=== PATIENT | male | born 1970 | race Caucasian/White ===

== ENCOUNTER 2017-01-14 06:29 | Day surgery (SDC) | payer BC ==
--- NOTE | 2017-01-04 20:55 | HP ---
PREOPERATIVE HISTORY AND PHYSICAL: DATE OF ADMISSION: 01/14/17 PROVIDERS: Thee Clifford MD and Janell Thomson MD. CHIEF COMPLAINT: Right fifth finger contracture and left foot pain. HISTORY OF PRESENT ILLNESS: Buck is a 46-year-old gentleman who has been followed by both Dr. Thomson and Dr. Clifford. He sees Dr. Thomson for a right small finger Dupuytren's contracture. He had a Xiaflex injection about 3 years ago; however, he only had relief from that for a few months and then had a recurrence of the contracture. It has become increasingly bothersome to him and he is interested in surgical intervention for that problem. He has also had complaints of left foot pain for several years. He does have a history of spina bifida occulta and a left cavovarus deformity. He did undergo an osteotomy in his midfoot several years ago to correct the cavus deformity and he also had a first and second toe IP joint fusion. He now has pain in what appears to be a third hammertoe that occasionally is blistering. He states he is unable to run and do any increased activity without discomfort. He is interested in surgical intervention for correction of that as well. PAST MEDICAL HISTORY: Spina bifida occulta. PAST SURGICAL HISTORY: 1. Left shoulder arthroscopy. 2. Left ulnar nerve decompression. 3. Multiple surgeries of the left foot. 4. Nasal fracture fixation. He reports no complications with anesthesia with any of those procedures. CURRENT MEDICATIONS: None. ALLERGIES: No known drug allergies. SOCIAL HISTORY: The patient lives with his . 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 He denies tobacco use. He drinks alcoholic beverages rarely. He does like to exercise regularly. REVIEW OF SYSTEMS: Constitutional: Negative for recent hospitalizations, fevers, chills, night sweats, or unexplained weight loss. Head: Negative for headaches, lightheadedness, or balance problems. Eyes: Negative for blurred vision. ENT: Negative for hearing changes, sore throat, runny nose, or frequent nosebleeds. Cardiovascular: Negative for chest or arm pain with exertion, history of heart attack, heart murmur, heart palpitations, high blood pressure, embolism, or deep vein thrombosis. Respiratory: Negative for chronic cough, shortness of breath with exertion, asthma, or COPD. Gastrointestinal: Negative for heartburn, nausea, vomiting, diarrhea, constipation, or GERD. Genitourinary: Positive for frequent urination. Negative for urinary tract infections or kidney stones. Musculoskeletal: Negative for chronic back pain or recent fractures. Skin: Negative for rashes, lesions, lumps, or sores. Neurologic: Negative for seizure, stroke, epilepsy, depression, or anxiety. Endocrine: Negative for diabetes or thyroid problems. Hematology: Negative for easy bleeding, bruising, or anemia. PHYSICAL EXAMINATION GENERAL: He is a well-developed, well-nourished pleasant male in no acute distress at rest. He is alert and oriented x3 with appropriate mood and affect. VITAL SIGNS: The patient is 5 feet 10 inches, 171 pounds. Blood pressure 129/ 80, pulse 66, temperature 98.6. HEENT: Normocephalic, atraumatic. Hearing and vision are grossly intact. He has normal dentition. NECK: The trachea is midline. RESPIRATORY: Lungs clear to auscultation bilaterally. No wheezes, rales, or rhonchi. CARDIOVASCULAR: Regular rate and rhythm. No murmurs, rubs, or gallops. Normal S1, S2. ABDOMEN: Soft, nondistended, nontender. Normal bowel sounds. EXTREMITIES: Exam of the right upper extremity: Skin is without abrasions or open wounds. There is no edema or ecchymosis. He does have a contracturing of his right fifth finger which is tender to palpation over the palmar aspect. He has full flexion of the MCP, PIP, and DIP joints of all digits. He is lacking some extension of the fifth finger. His sensation to light touch is intact. He has a 2+ radial pulse. Exam of the left lower extremity: Skin is without abrasions or open wounds. He has multiple well-healed incisions. He has an overall cavus deformity of the foot with a fixed forefoot in pronation. He also has a third hammertoe deformity and has tenderness to palpation at the tip of his third toe. His sensation to light touch is intact. He has 2+ dorsalis pedis pulse. IMPRESSION: Right hand fifth finger Dupuytren's contracture, left foot third hammertoe deformity. PLAN: The patient is to undergo a left foot second, third, and fourth mallet toe repair by Dr. Clifford as well as a right small finger Dupuytren's excision by Dr. Thomson on 01/14/17. The risks, benefits, and postoperative course were discussed with the patient at length and he would like to proceed. A prescription for oxycodone was sent to his pharmacy for postoperative pain. All of his questions were answered to his full satisfaction. He is understanding to call should he develop any problems or concerns. MACY CARSON [id number]/[facility] #: [id number] IRENE
[~2017-01-14 06:29] MED LIST: Buffered Lidocaine 1% SYRIN* 3 ML/SYR SYRINGE INTRADERM ONE; Ibuprofen TAB* 400 MG ONE; Ibuprofen TAB* 800 MG PO ONE; Sodium Citrate/Citric Acid* 15 ML UDC ONE; Sodium Citrate/Citric Acid* 15 ML UDC PO ONE; ceFAZolin 2 GM PREMIX(*) 2 GM/50 ML BAG IVPB ONE
[2017-01-14] MEDS ORDERED: Bupivacaine 0.5% SDV PF* 30 ML VIAL ONE (06:55)
[2017-01-14] MEDS ORDERED: Midazolam* 1 MG/ML 5 ML VIAL (5 MG) ONE (07:33)
[2017-01-14] MEDS ORDERED: fentaNYL* 50 MCG/ML 2 ML VIAL (100 MCG VIAL) ONE (07:33)
[2017-01-14] MEDS ORDERED: Propofol* 10 MG/ML 20 ML BTL IV PUSH ONE (07:39)
[2017-01-14] MEDS ORDERED: Lidocaine 1% INJ* 10 MG/ML 30 ML SDV ONE (07:41)
[2017-01-14] MEDS ORDERED: Lidocaine 2% PF* 10 ML AMP ONE (07:57)
[2017-01-14] MEDS ORDERED: fentaNYL* 50 MCG/ML 2 ML VIAL (100 MCG VIAL) IV PRN (08:00)
[2017-01-14] MEDS ORDERED: oxyCODONE/Acetamin 5/325 MG* TAB PO PRN (08:00)
[2017-01-14 09:06] VITALS: BP 136/96
--- NOTE | 2017-01-15 03:38 | OP ---
DATE OF OPERATION: 01/14/17 [facility] DATE OF : 72 SURGEON: Janell Thomson MD. SHIPPING SUPERVISOR: MACY Lacey. ANESTHESIOLOGIST: Rik Quesada MD ANESTHESIA: Local MAC. PRE-OP DIAGNOSIS: Dupuytren's contracture of the right small finger. POST-OP DIAGNOSIS: Dupuytren's contracture of the right small finger. OPERATIVE PROCEDURE: Dupuytren's contracture removal, right small finger. INDICATIONS: Buck is a 46-year-old male who has had a right small finger Dupuytren's contracture for quite a while. He has had Xiaflex injection, which initially gave him relief of the contracture, but he has recurrence and presents for now surgical removal. ESTIMATED BLOOD LOSS: Zero. TOURNIQUET TIME: About 30 minutes. DESCRIPTION OF PROCEDURE: The patient was brought to the operating room, he was given a sedation anesthetic and a local infiltration as a digital block on the right small finger. Dr. Clifford simultaneously was operating on his left foot. The skin of his right hand and forearm was prepped and dapped in the usual sterile fashion. The hand and forearm were exsanguinated and the tourniquet elevated to 250 mmHg. A Maddie incision was made centered over the palpable Dupuytren's tissue. We carefully dissected the skin flaps up the digital neurovascular bundles that were located and the nerve was carefully dissected out distally. The Dupuytren's tissue was then removed in its entirety , it was causing a flexion contracture of the PIP joint, which he had near full correction of the contracture. The wound was irrigated and the skin edges were reapproximated with 4-0 nylon suture. The wound was dressed with Xeroform, 4x4 , Webril, and a volar splint, keeping the finger in extension. The patient tolerated the procedure well and was brought to the recovery room in good condition. [id number]/[facility] #: [id number] MTDAdrian
--- NOTE | 2017-01-15 13:22 | OP ---
DATE OF OPERATION: 01/14/17 - [facility] DATE OF : 72 ATTENDING SURGEON: Thee Clifford MD. MANUFACTURING APPLICATIONS ENGINEER: None. ANESTHESIOLOGIST: Rik Quesada MD ANESTHESIA: MAC PRE-OP DIAGNOSIS: Left second, third, fourth mallet toes. POST-OP DIAGNOSIS: Left second, third, fourth mallet toes. OPERATIVE PROCEDURE: Repair of left second, third, fourth mallet toes. DESCRIPTION OF PROCEDURE: The patient was taken to the operating room where ankle Esmarch was placed around his left ankle and we made transverse elliptical incisions over the left second, third, and fourth DIP joints. Collateral ligaments were incised to have visualization of the joint surfaces. We excised the condyles with a narrow gauge microsagittal saw and then pinned these toes in full extension using 0.062 C wires. We irrigated and closed the dorsal wounds with interrupted nylon sutures and a compression dressing was applied. [id number]/[facility] #: [id number] [facility]
== END 2017-01-14 09:17 | disposition home or self-care (01) ==
LOC: OR 06:29
PROVIDERS: ATTEND Orthopaedic Surgery
DX: M20.42 Other hammer toe(s) (acquired), left foot (principal); M72.0 Palmar fascial fibromatosis [Dupuytren]; Q05.9 Spina bifida, unspecified
CPT/HCPCS: 88304; 88311; A9270-GY; C1776; J0690; J2001; J2250; J2704; J3010

== ENCOUNTER 2019-05-18 08:22 | Day surgery (SDC) | payer BC ==
[~2019-05-18 08:22] MED LIST changes: +Buffered Lidocaine 1% SYRIN* 1 ML/SYRINGE INTRADERM ONE; -Buffered Lidocaine 1% SYRIN* 3 ML/SYR SYRINGE INTRADERM ONE; +Famotidine IV* 10 MG/ML 2 ML (20 mg) IV ONE; -Ibuprofen TAB* 400 MG ONE; -Ibuprofen TAB* 800 MG PO ONE; +Lactated Ringers 1000 ML Bag* 1,000 ML IV SCH; +Midazolam* 1 MG/ML 5 ML VIAL (5 MG) ONE; -Sodium Citrate/Citric Acid* 15 ML UDC ONE; -Sodium Citrate/Citric Acid* 15 ML UDC PO ONE; -ceFAZolin 2 GM PREMIX(*) 2 GM/50 ML BAG IVPB ONE; +fentaNYL* 50 MCG/ML 2 ML VIAL (100 MCG VIAL) ONE
[2019-05-18] MEDS ORDERED: ceFAZolin 2 GM in NS PREMIX(*) 2 GM/100 ML BAG IVPB ONE (08:40)
[2019-05-18] MEDS ORDERED: Famotidine IV* 10 MG/ML 2 ML (20 mg) ONE (08:40)
[2019-05-18] MEDS ORDERED: ROPIVACAINE 5 MG/ML 30 ML BTL (0.5%) ONE (09:31)
[2019-05-18] MEDS ORDERED: Lidocaine 1% MPF ** 5 ML VIAL ONE (09:31)
[2019-05-18] MEDS ORDERED: Bupivacaine 0.25% SDV* 30 ML ONE (10:42)
[2019-05-18] MEDS ORDERED: Dexamethasone IV* 4 MG/ML 1 ML (4 MG) ONE (10:50)
[2019-05-18] MEDS ORDERED: Lidocaine 2% PF * 5 ML VIAL ONE (10:50)
[2019-05-18] MEDS ORDERED: Succinylcholine* 20 MG/ML 10 ML VIAL ONE (10:50)
[2019-05-18] MEDS ORDERED: Propofol* 10 MG/ML 20 ML BTL ONE (10:50)
[2019-05-18] MEDS ORDERED: Ketorolac INJ* 30 MG/ML 1 ML VIAL ONE (10:50)
[2019-05-18] MEDS ORDERED: Ondansetron INJ* 2 MG/ML VIAL ONE (10:50)
[2019-05-18] MEDS ORDERED: HYDROmorphone INJ1* 1 MG/ML SYRINGE IV PRN (11:19)
[2019-05-18] MEDS ORDERED: Naloxone* 0.4 MG/ML 1 ML VIAL IV PRN (11:19)
[2019-05-18] MEDS ORDERED: DiMENhydriNATE IV* 50 MG/ML VIAL IV PUSH PRN (11:19)
[2019-05-18] MEDS ORDERED: Acetaminophen TAB* 325 MG PO PRN (11:19)
[2019-05-18 12:05] VITALS: BP 127/76
--- NOTE | 2019-05-18 14:36 | OP ---
CC: PCP, Eliseo Hogan MD * DATE OF OPERATION: 05/18/19 [facility] DATE OF : 72 SURGEON: Lux Doshi MD CVICU RN: MACY Gan. An dietitian assistant was needed for the entirety of the case to help with positioning, retraction, and was utilized throughout all portions of the case. ANESTHESIOLOGIST: Dr. Ruiz. ANESTHESIA: General with interscalene block. PRE-OP DIAGNOSES: Right shoulder osteoarthritis with partial-thickness tearing of the rotator cuff and bicipital tendinitis and tendinosis. POST-OP DIAGNOSES: Right shoulder osteoarthritis with partial-thickness tearing of the rotator cuff and bicipital tendinitis and tendinosis. OPERATIVE PROCEDURE: Right shoulder arthroscopy with: 1. Extensive glenohumeral debridement. 2. Subacromial decompression with acromioplasty. 3. Rotator cuff repair with Regeneten patch. 4. Open biceps tenodesis. COMPLICATIONS: None. ESTIMATED BLOOD LOSS: Minimal. INDICATIONS: Buck Srinivasan is a 49-year-old male with osteoarthritis of the shoulder, which has been bothering him. He has pain with overhead reaching, catching, as well as lying on it. He had failed conservative management. He elected to proceed with surgical treatment. Risks and benefits were discussed at length and included, but are not limited to bleeding; infection; damage to nerves, vessels, surrounding structures; wound nonhealing; persistent pain; need for further surgery; scarring; stiffness; incomplete relief of symptoms; risks of anesthesia. He has elected to proceed with operative management. The patient is aware that he has osteoarthritis and may need a replacement at some point down the road. DESCRIPTION OF PROCEDURE: The patient was greeted in the preoperative area by the attending surgeon. Correct extremity was marked and consent was confirmed. The patient underwent interscalene nerve block by the anesthesiologist, after which he was brought back to the operating suite where he was placed in supine position on the operating table. He then underwent general anesthesia with endotracheal intubation, after which he was placed in the left lateral decubitus position. All bony prominences were padded and he was secured with a pegboard. The right arm was draped unsterile with 10 pounds of traction. The right shoulder was then prepped and draped in the usual sterile fashion beginning with chlorhexidine soap, scrub, and alcohol wipe, and a final prep with ChloraPrep. After appropriate surgical pause indicating side, site, procedure, and administration of antibiotics, the standard postero-lateral portal was made sharply with 11-blade. Scope was introduced into the joint and the joint was examined. There was evidence of grade 3 and grade 4 changes to the humeral head , particularly superiorly, inferiorly and about the glenoid there were grade 2 and 3 changes and then posteriorly about the posterior labrum, there was evidence of grade 4 changes. There was significant synovitis that was present as well as anterior, posterior and superior labral fraying. The biceps had obvious SLAP tear with synovitis, tendinosis, and tendinitis. The anterior portal was made in an outside-in fashion. The shaver was used to debride back the abundant frayed labrum. There was some thickening of the tissue as well. The biceps was then tenotomized for later tenodesis. The subscap was visualized and found to be intact, although had some partial tearing. The inferior recess was examined and there was synovitis and there were no loose bodies. There was some evidence that they were adherent to the capsule inferiorly that were left alone. A small chondroplasty was done as well. The shoulder was thoroughly lavaged to remove any loose debris. The undersurface of the rotator cuff, supraspinatus was identified and had some partial- thickness tearing with fraying at the insertion. Otherwise, the remainder of the cuff looked okay. Attention was directed to the subacromial space. With the scope positioned in the subacromial space, the lateral portal was then made using 11-blade. The abundant bursa was then removed using the shaver. Hemostasis was obtained using electrocautery device. There was abundant thick bursa that was present. The cuff looked to be globally intact with some mild fraying. The undersurface of the acromion had a downward sloping acromion. This was debrided back using a 4-0 oval janusz. All loose debris was removed from this. The CA ligament was released as well. The wounds were then copiously irrigated with sterile saline. Attention was directed to the cuff. Again, there was some partial-thickness tearing on the undersurface. The MRI demonstrated that as well. Decision was made to treat this with a Regeneten patch. A size medium Regeneten patch was then brought to the field and placed under arthroscopic visualization. Then, through a separate stab incision, tendon anchors were placed medially to secure the tendon to the implant of the tendon and laterally, bone dominick were then used. The graft was found to be well positioned. Final images were obtained. The wounds were then copiously irrigated with sterile saline. Attention was directed to the biceps. The anterior aspect of the shoulder was prepared with ChloraPrep. A 15-blade was used to make an incision in line with the biceps tendon incorporating the inferior two-thirds of the pec. The soft tissues were carefully dissected to expose the pec tendon, which was then elevated and the biceps was palpated, brought through the wound, had abundant synovitis and tendinosis. The groove had a significant amount of synovitis as well. The groove was then prepared in usual fashion using electrocautery device, red ball rasp, and osteotome. A Q- Fix was then drilled unicortically and the Q-Fix was deployed with excellent purchase. Sutures were then passed through the tendon in musculotendinous fashion in a Cesar-Eric type configuration. The biceps was then secured and tied down. The excess stump was excised. The wounds were then copiously irrigated with sterile saline. The portals were closed with 3-0 nylon. The skin was closed in layers with 3-0 Monocryl. The anterior wound was closed in layers with 2-0 Monocryl. Sterile dressings were applied. Cryo/Cuff and UltraSling were applied. He was awoken from anesthesia and transferred to the PACU in stable condition. POSTOPERATIVE PLAN: He will be nonweightbearing. He will be in a sling for about 4 weeks. He will be discharged on pain medication. DVT prophylaxis was considered, but deferred due to no previous personal or family history. I will see the patient back in 10 to 14 days. [id number]/[facility] #: [id number] IRENE
== END 2019-05-18 12:09 | disposition home or self-care (01) ==
LOC: OREAST 08:22
PROVIDERS: ATTEND Orthopaedic Surgery
DX: M19.011 Primary osteoarthritis, right shoulder (principal); M75.111 Incomplete rotator cuff tear or rupture of right shoulder, not specified as traumatic; M75.21 Bicipital tendinitis, right shoulder; Q76.0 Spina bifida occulta; G89.18 Other acute postprocedural pain
CPT/HCPCS: 36415; 80061; C1713; C1776; J0330; J0690; J1100; J1885; J2250; J2405; J2704; J2795; J3010; J3490